=== PATIENT | male | born 1935 | race Caucasian/White ===

== ENCOUNTER 2019-06-11 16:49 | Emergency (ER) | payer OTHER, BC ==
[~2019-06-11] VITALS: Ht 172.7 cm; Wt 90.7 kg
[~2019-06-11 16:49] MED LIST: AMLODIPINE BESYL5 MG PO; AUGMENTIN 875-1 EACH PO; BYSTOLIC10 MG PO; CIPRO500 MG PO; CLONIDINE HCL0.2 M2 PO; CLONIDINE0.1 PO; COZAAR100 MG PO; FLAGYL500 MG PO; FLONASE 0.05%50 MCG NASAL; NORCO 5-325 TA1 EACH PO; PROPRANOLOL 1010 M1 PO; PROTONIX40 MG PO
[2019-06-11 18:42] VITALS: BP 177/81
== END 2019-06-11 18:46 | disposition home or self-care (01) ==
LOC: ER 16:49
DX: I10 Essential (primary) hypertension (principal)

== ENCOUNTER 2019-09-15 08:30 | Emergency (ER) | payer OTHER, BC ==
[~2019-09-15] VITALS: Ht 180.3 cm; Wt 90.7 kg
[2019-09-15 09:18] LABS: ABSOLUTE NEUTROPHILS 4.2 thou/uL (1.4-8.2); BASOPHILS 0.7 % (0.0-2.0); EOSINOPHILS 3.7 % (0.0-3.0); HEMOGLOBIN 12.5 gm/dL (14.0-18.0); MCH 30.6 pg (26.0-34.0); MCHC 34.6 g/dL (28.0-37.0); MCV 88.2 fL (80.0-100.0); MONOCYTES 9.1 % (1.0-8.0); PLATELET COUNT 300 thou/uL (150-400); POLYS 60.5 % (36.0-66.0); RBC 4.08 mil/uL (4.50-6.00); RDW 13.9 % (10.5-14.5); WBC 6.9 thou/uL (4.0-11.0)
[2019-09-15 09:26] LABS: CALCIUM 8.6 mg/dL (8.5-10.1); CREATININE 0.9 mg/dL (0.7-1.3); POTASSIUM 4.1 mmol/L (3.5-5.1)
[2019-09-15 09:32] LABS: ALBUMIN 3.5 g/dL (3.4-5.0); TOTAL BILIRUBIN 0.8 mg/dL (<0.1-1.0); TOTAL PROTEIN 6.8 g/dL (6.4-8.2)
[2019-09-15] MEDS ORDERED: MIRALAX119 GM PO (14:36)
[2019-09-15 15:13] VITALS: BP 146/77
== END 2019-09-15 15:14 | disposition home or self-care (01) ==
LOC: ER 08:30
PROVIDERS: Emergency Medicine Emergency Medical Services
DX: S22.080A Wedge compression fracture of T11-T12 vertebra, initial encounter for closed fracture (principal); K59.00 Constipation, unspecified; M54.5 Low back pain; I10 Essential (primary) hypertension; Z79.899 Other long term (current) drug therapy; V43.52XA Car driver injured in collision with other type car in traffic accident, initial encounter; Y93.89 Activity, other specified; Y92.89 Other specified places as the place of occurrence of the external cause; Y99.8 Other external cause status